=== PATIENT | female | born 1990 | race American Indian/Alaskan Native ===

== ENCOUNTER 2018-07-27 02:34 | Emergency (ER) | payer SELFPAY ==
[2018-07-27 02:49] VITALS: BP 153/83; PULSE 83; RESP 20; TEMP 99.4; O2SAT 97
--- NOTE | 2018-07-27 03:18 | C.PDOC ---
History Of Present Illness 28 year old female presents to the ED c/o left upper gum pain for the past week. Patient now noticed some facial swelling as well. Patient denies fever, chills, lip swelling, tongue swelling, injury, fall, trauma. Time Seen by Provider: 07/27/18 03:03 Chief Complaint (Nursing): Dental Pain History Per: Patient History/Exam Limitations: no limitations Onset/Duration Of Symptoms: Days Current Symptoms Are (Timing): Still Present Quality: Positive for: "Pain" Recent travel outside of the [place]: No Additional History Per: Patient Past Medical History Reviewed: Historical Data, Nursing Documentation, Vital Signs Vital Signs: Last Vital Signs Temp 99.4 F 07/27/18 02:44 Pulse 83 07/27/18 02:44 Resp 20 07/27/18 02:44 BP 153/83 H 07/27/18 02:44 Pulse Ox 97 07/27/18 02:44 Primary Care Provider: Gus Dyer - Medical History PMH: No Chronic Diseases Surgical History: No Surg Hx Family History: States: Unknown Family Hx - Social History Hx Alcohol Use: No Hx Substance Use: No - Immunization History Hx Tetanus Toxoid Vaccination: No Hx Influenza Vaccination: No Hx Pneumococcal Vaccination: No Review Of Systems Constitutional: Negative for: Fever, Chills ENT: Positive for: Mouth Pain, Mouth Swelling. Negative for: Nose Discharge, Throat Pain Respiratory: Negative for: Cough Gastrointestinal: Negative for: Nausea, Vomiting Musculoskeletal: Negative for: Neck Pain Skin: Negative for: Rash Neurological: Negative for: Headache Physical Exam - Physical Exam Appears: Non-toxic, No Acute Distress Skin: Normal Color, Warm, Dry Head: Atraumatic, Normacephalic, Swelling (moderate left sided) Eye(s): bilateral: Normal Inspection Ear(s): Bilateral: Normal Oral Mucosa: Moist Tongue: No Swelling, Other (no tongue elevation) Lips: No Swelling Teeth: Other (poor dental hygiene. Lcoalized cavity to left upper molar) Gingiva: Other (small area of fluctuance of left upper gum pre molar area with erythema) Throat: Normal, No Erythema, No Exudate Neck: Normal ROM, Supple Neurological/Psych: Oriented x3, Normal Speech, Normal Cognition Gait: Steady ED Course And Treatment O2 Sat by Pulse Oximetry: 97 (ON RA) Pulse Ox Interpretation: Normal Progress Note: Plan: - clindamycin 300 mg PO. - Motrin 800 mg PO. Patient was given antibiotics in the ED and advised to follow up with Dentist. Disposition Counseled Patient/Family Regarding: Diagnosis, Need For Followup, Rx Given - Disposition Referrals: [facility] [Outside] Disposition: HOME/ ROUTINE Disposition Time: 03:15 Condition: STABLE Additional Instructions: Please follow up with Dentist Take medications as directed Return to ER if worse Prescriptions: Clindamycin [Cleocin] 300 mg PO QID #30 cap Ibuprofen [Motrin Tab] 800 mg PO QID #30 tab Instructions: Tooth Abscess (DC) Forms: [employer] (Mongolian) - Clinical Impression Clinical Impression: Dental abscess, Dental caries - PA / [employer] / Resident Statement MD/DO has reviewed & agrees with the documentation as recorded. - Scribe Statement The provider has reviewed the documentation as recorded by the Scribe Armando Pascual All medical record entries made by the Scribe were at my direction and personally dictated by me. I have reviewed the chart and agree that the record accurately reflects my personal performance of the history, physical exam, medical decision making, and the department course for this patient. I have also personally directed, reviewed, and agree with the discharge instructions and disposition.
== END 2018-07-27 03:53 | disposition home or self-care (01) ==
LOC: C.ER 02:34
DX: K04.7 Periapical abscess without sinus (principal); K02.9 Dental caries, unspecified